=== PATIENT | male | born 1960 | race Caucasian/White ===

== ENCOUNTER 2023-11-17 10:00 | Outpatient (RCR) | payer SELFPAY ==
--- NOTE | 2023-11-17 08:59 | HP.PTEVAL_ITS ---
Patient's Visit Information Visit Information Visit Information: ANNA NGUYEN is a 63 year old M referred to Physical Therapy by Dr. Hitesh Bowden MD with a diagnosis of Low back pain, R sided radiculopathy. Date of Evaluation: 11/03/23 Physical Therapist: Mihai Blanc DPT Visit Plan Frequency: 2x /Week Duration: 6 Weeks Plan: Start with extension progress and walking. Pt. did have a slight + response with extension this date. Pt. desires to complete on own at this point in time and come back in 1-2 weeks. Subjective Subjective: Pt. is here today for his initial evaluation with diagnosis pf low back pain, R leg radiculopathy. Pt. reports increased pain for a few weeks now that starts in his back and radiates down his R leg. He reports N/T in his buttock and posterior thigh. Mornings are worse. He reports if he keeps walking it does better. Sitting and driving is more painful. He reports no B/B changes. Pt. reports no myotomal weakness either. Pt. has stayed away from flying his airplane and other activites that cause him to sit for longer periods of time. Sleeping is painful, but not as bad as lying down. Pt. is hopeful to reduce symptoms in order to get back to all recreational activities without increase in symptoms. Pain R leg: Pain Intensity (Out of 10): 5 Pain Intensity Range: 2 and 8 Low back: Pain Intensity (Out of 10): 5 Pain Intensity Range: 2 and 8 Objective Objective: POSTURE: Pt. has slight flexed posture. Pt. is able to improve, but does bother him to do so. No large lateral shift noted. PALPATION: Pt. has some increased muscle guarding throughout paraspinals. He did have increased pain with spring testing of L3-L5. Hypomobility noted as well. NEURO: normal throughout. Pt. has normal DTR of B achilles and patellar DTR. Pt. is able to rise on heels toes. ROM: LUMBAR SPINE: Flexion mod loss increase NW, ext mod loss mild increase NW, SB min loss NE bilat, rotation min loss NE bilat. Pt. has tightness in B HS. MMT: Pt. has no myotomal weakness noted. Pt. did have pain with SLR testing. Core strength fair- with increased pain. GAIT: Pt. has guarded mechanics, decreased arm swing. Pt. reports feeling better with walking compared to sitting. Special Tests L/S Slump test left side: Negative L/S Slump test right side: Positive L/S Left Straight Leg Raise: Negative L/S Right Straight Leg Raise: Positive Balance/Special Test Scores Lower Extremity Functional Score: 37 Goals Goal 1:: LTG: Pt. to be I with HEP. Goal Time Frame: 4-6 Weeks Goal 2:: STG: Pt. to have full lumbar ROM without increase in symptoms. Goal Time Frame: 2-4 Weeks Goal 3:: LTG: Pt. to be able to sit for unlimited time without increase in symptoms. Goal Time Frame: 4-6 Weeks Goal 4:: LTG: Pt. report no radicular pain in RLE. Goal Time Frame: 4-6 Weeks Rehabilitation Potential Physical Therapy Diagnosis: Pt. has signs and symptoms consistent with R sided radiculopathy. Pt. had + SLR and + slump test on R side. Slight preference for extension this date. Pt. would benefit from PT to work on lumbar ROM and reducing symptoms in order to get back to all reactional activities without limitations. Rehabilitation Potential: Good Anticipated Interventions Patient/Client Instruction: Educate patient on: Condition, Plan of Care, Risk Factors and Benefits of Fitness Program For the Purpose of:: To facilitate caregiver knowledge, To improve self management, To prevent re-injury, To improve ability to perform tasks related to life management and To improve tolerance to ADL's Therapeutic Exercise to Include: Strength training, Power training, Postural training, Flexibilty training, Passive ROM, Active ROM, Dynamic Lumbar Stabilization and Annie Exercises For the Purpose of:: To decrease pain, To increase ROM, To improve nutrient delivery to tissue, To increase oxygenation perfusion, To improve muscle performance and motor function, To improve health of tissue, To decrease soft tissue restriction and To increase flexibility/ROM Manual Therapy Techniques to Include: Mobilization, Passive ROM and Soft tissue mobilization For the Purpose of:: To decrease pain, To increase ROM, To improve nutrient delivery to tissue, To increase oxygenation perfusion and To improve muscle performance and motor function IF ES: Yes Cryotherapy (ice pack, ice massage): Yes Thermo therapy (hot pack): Yes For the Purpose of:: To decrease pain, To increase ROM, To improve nutrient delivery to tissue, To increase oxygenation perfusion and To improve muscle performance and motor function Text: Thank you for the opportunity to evaluate your patient. For Medicare and Medicare HMO plans, please review the plan of care and approve it. It will need to be FAXED BACK to us at [phone] for Medicare purposes. For Medicare only, by signing this I certify the plan of care. Please let me know if there are questions or concerns regarding this plan of care. Physician Signature: Date:
== END 2023-11-17 19:00 | disposition home or self-care (01) ==
LOC: PT 10:00
PROVIDERS: Referring Provider Anesthesiology; Visit Provider Anesthesiology
DX: M54.50 Low back pain, unspecified (principal); M79.604 Pain in right leg; M54.10 Radiculopathy, site unspecified
CPT/HCPCS: 97110; 97161